=== PATIENT | female | born 1965 | race Caucasian/White ===

== ENCOUNTER 2018-01-19 08:32 | Emergency (ER) | payer BC ==
[2018-01-19] MEDS ORDERED: Ondansetron INJ* 2 MG/ML VIAL IV ONE (08:55)
[2018-01-19] MEDS ORDERED: NS 0.9% 1000 ML* 1,000 ML IV SCH (09:00)
--- NOTE | 2018-01-19 09:01 | UC ---
Dizzy HPI HPI Summary: PATIENT HAS BEEN HAVING INTERMITTENT DIZZINESS AND PALPITATIONS FOR SEVERAL WEEKS. THIS MORNING SYMPTOMS WORSENED AND PATIENT THOUGHT SHE WOULD PASS OUT. HAS ASSOCIATED NAUSEA AND HEADACHE. PATIENT IS A SMOKER WITH A HISTORY OF HIGH CHOLESTEROL. POSITIVE FAMILY HISTORY OF HEART DISEASE. - History Of Current Complaint Chief Complaint: UCDizziness Stated Complaint: DIZZINESS Time Seen by Provider: 01/19/18 08:33 Hx Obtained From: Patient Onset/Duration: Gradual Onset, Lasting Weeks, Worse Since - TODAY Severity Initially: Moderate Severity Currently: Moderate Pain Intensity: 0 Pain Scale Used: 0-10 Numeric Character: Weak, Dizzy Aggravating Factor(s): Position Change Alleviating Factor(s): Nothing Associated Signs And Symptoms: Positive: Nausea, SOB, Palpitations. Negative: Diaphoresis, Chest Pain - Allergies/Home Medications Allergies/Adverse Reactions: Allergies Allergy/AdvReac Type Severity Reaction Status Date / Time No Known Allergies Allergy Verified 02/18/15 09:25 PMH/Surg Hx/FS Hx/Imm Hx Endocrine History: Dyslipidemia - Surgical History Surgical History: Yes Surgery Procedure, Year, and Place: HYSTERECTOMY,ESSURE, BLADDER SLING, - Family History Known Family History: Positive: Cardiac Disease, Hypertension - Social History Alcohol Use: None Substance Use Type: None Smoking Status (MU): Heavy Every Day Tobacco Smoker Household Exposure Type: Cigarettes Review of Systems Constitutional: Negative Skin: Negative Respiratory: Shortness Of Breath Cardiovascular: Palpitations Gastrointestinal: Nausea Neurological: Headache All Other Systems Reviewed And Are Negative: Yes Physical Exam Triage Information Reviewed: Yes Appearance: Well-Nourished, Ill-Appearing - UNCOMFORTABLE - LAYING WITH EYES CLOSED Vital Signs: Initial Vital Signs Temp 97.3 F 01/19/18 08:42 Pulse 78 01/19/18 08:42 Resp 18 01/19/18 08:42 BP 152/77 01/19/18 08:42 Pulse Ox 100 01/19/18 08:42 Eyes: Positive: Conjunctiva Clear ENT: Positive: Hearing grossly normal Neck: Positive: Supple Respiratory Exam: Normal Cardiovascular Exam: Normal Abdomen Description: Positive: Soft Musculoskeletal: Positive: No Edema Neurological: Positive: Alert Psychological: Positive: Age Appropriate Behavior Skin: Negative: rashes Diagnostics - EKG Cardiac Rate: NL - 78 BPM Cardiac Rhythm: Sinus: Normal Ectopy: None ST Segment: Non-Specific - <1MM ST DEPRESSION LATERAL LEADS Dizzy Course/Dx - Course Course Of Treatment: TO [facility] BY AMBULANCE - Differential Dx/Diagnosis Provider Diagnoses: DIZZY, PALPITATIONS - Physician Notifications Discussed Patient Care With: SHAHEED ARNOLD RN Time Discussed With Above Provider: 08:55 Instructed by Provider To: MD Will See In ED Discharge - Sign-Out/Discharge Documenting (check all that apply): Patient Departure All imaging exams completed and their final reports reviewed: No Studies - Discharge Plan Condition: Stable Disposition: TRANS HIGHER LVL OF CARE FAC - Billing Disposition and Condition Condition: STABLE Disposition: Trans Higher Lvl of Care Fac
[2018-01-19 09:17] VITALS: BP 152/77
== END 2018-01-19 09:22 | disposition short-term general hospital (02) ==
LOC: UCEAST 08:32
DX: R42 Dizziness and giddiness (principal); R00.2 Palpitations; R06.02 Shortness of breath; R11.0 Nausea; F17.210 Nicotine dependence, cigarettes, uncomplicated
CPT/HCPCS: 93005; 96360; 96374; 96376; 99213; G0463; J2405

== ENCOUNTER 2018-01-19 09:47 | Emergency (ER) | payer BC ==
[2018-01-19] MEDS ORDERED: Aspirin 81 mg CHEW TAB* 81 MG TAB.CHEW PO ONE (09:57)
[2018-01-19 10:35] LABS: Urine Appearance Clear; Urine Blood Negative (Negative); Urine Color Colorless; Urine Ketones Negative (Negative); Urine Protein Negative (Negative); Urine Specific Gravity 1.001 (1.010-1.030); Urine Urobilinogen Negative (Negative)
--- NOTE | 2018-01-19 10:39 | ED ---
Palpitations / Dysrhythmia - HPI Summary HPI Summary: This patient is a 53 year old F BIBA from [facility] to ED with a chief complaint of palpitations and SOB since earlier today. Patient was driving from home to [facility] to get [employer] with her daughter during onset. The CC is described as constant and pounding, and she is currently feeling this way in the room. The patient rates the pain 5/10 in severity. Symptoms aggravated by anxiety. Symptoms alleviated by nothing. Patient reports nausea, dizziness, feeling flushed, near syncope while driving to , and frontal PAT (4/10 in severity). Patient denies CP, blurred vision, and any vision changes. PSHx of tubal ligation and D&C. Denies hx of panic attacks. Stress test done by Dr. Diaz , [employer] biometric fingerprinting technician. FHx CAD in both mother and fathers side. Patient is a smoker and does not drink alcohol. Current vitals include 70 BPM, 98 O2 sat, and BP 144/88. Home Medications Medication Instructions Recorded Confirmed Type Atorvastatin* [Lipitor 40 MG*] 40 mg PO DAILY 02/18/15 01/19/18 History Cetirizine* [ZyrTEC 10 MG TAB*] 10 mg PO DAILY 02/18/15 01/19/18 History Conjugated Estrogens TAB* 0.3 mg PO DAILY 02/18/15 01/19/18 History [Premarin TAB*] [place]-3/Dha/Epa/Fish Oil [Fish Oil 1 cap PO DAILY 02/18/15 01/19/18 History 500 mg Softgel] - History of Current Complaint Chief Complaint: EDDysrhythmPalp Time Seen by Provider: 01/19/18 09:56 Hx Obtained From: Patient, EMS, Medical Records - [facility] Onset/Duration: Sudden Onset, Lasting Hours - earlier today, Still Present Timing: Constant Severity Initially: Moderate - 5/10 Severity Currently: Moderate - 5/10 Character: Pounding Aggravating: Nothing Alleviating: Nothing Associated Signs & Symptoms: Nausea - Patient reports nausea, dizziness, feeling flushed, near syncope while driving to , and frontal PAT (4/10 in severity). Patient denies CP, blurred vision, and any vision changes. - Risk Factors Cardiac: Smoking, Family History - Allergy/Home Medications Allergies/Adverse Reactions: Allergies Allergy/AdvReac Type Severity Reaction Status Date / Time No Known Allergies Allergy Verified 01/19/18 10:03 PMH/Surg Hx/FS Hx/Imm Hx Endocrine/Hematology History: Denies: Hx Diabetes Cardiovascular History: Reports: Hx Hypercholesterolemia Denies: Hx Hypertension, Hx Pacemaker/ICD Respiratory History: Denies: Hx Asthma Sensory History: Denies: Hx Hearing Aid Psychiatric History: Reports: Hx Panic Disorder - Surgical History Surgery Procedure, Year, and Place: HYSTERECTOMY,ESSURE, BLADDER SLING, - Immunization History Immunizations Up to Date: Yes Infectious Disease History: No Infectious Disease History: Denies: Traveled Outside the [place] in Last 30 Days - Family History Known Family History: Positive: Cardiac Disease, Hypertension - Social History Lives: With Family Alcohol Use: None Substance Use Type: Reports: None Hx Tobacco Use: Yes Smoking Status (MU): Heavy Every Day Tobacco Smoker Type: Cigarettes Review of Systems Positive: Other - "feeling flushed" Positive: Other - denies any vision changes. Negative: Blurred Vision Negative: Chest Pain Respiratory: Negative Gastrointestinal: Negative Neurological: Other - dizziness, near syncope Positive: Headache - frontal Psychological: Normal All Other Systems Reviewed And Are Negative: Yes Physical Exam - Summary Physical Exam Summary: Appearance: Well-appearing, moderate pain distress, well-nourished Skin: Warm, color reflects adequate perfusion, dry Head: Normal Head/Face inspection, atraumatic Eyes: Conjunctiva clear ENT: TM umbo is erythematous bilat, good light reflex. Thyroid is not palpable. Neck: Supple, no nodes, no JVD. Respiratory: Lungs clear, normal breath sounds, no respiratory distress Cardio: RRR, 70's, no ectopy noted on monitor, No murmur, pulses normal, brisk capillary refill Abdomen: Soft, nontender Bowel sounds: Present Musculoskeletal: Strength Intact/ROM intact, no calf tenderness, no edema. Psychological: Normal Neuro: Alert, ) x 3, CNII-XII intact, motor 5/5, Sensation intact, CBL nl FTN, muscle tone normal, no focal deficit Triage Information Reviewed: Yes Vital Signs On Initial Exam: Initial Vitals Temp Pulse Resp BP Pulse Ox 97.8 F 63 18 139/89 99 01/19/18 09:57 01/19/18 09:57 01/19/18 09:57 01/19/18 09:57 01/19/18 09:57 Vital Signs Reviewed: Yes Diagnostics - Vital Signs Vital Signs Temp Pulse Resp BP Pulse Ox 01/19/18 10:00 70 12 139/89 99 01/19/18 09:57 97.8 F 67 18 139/89 99 - Laboratory Result Diagrams: 01/19/18 10:48 01/19/18 10:48 Lab Statement: Any lab studies that have been ordered have been reviewed, and results considered in the medical decision making process. - Radiology CXR Radiology Interpretation Completed By: Radiologist - NO ACTIVE CARDIOPULMONARY DISEASE IS NOTED. ED physician has reviewed this radiology report. - EKG 0948 Cardiac Rate: Bradycardia - 59 BPM EKG Rhythm: Sinus Bradycardia ST Segment: Non-Specific Ectopy: None EKG Interpretation: An EKG at 0948 reveals nml AV/IV CT, nml QTc, and nml axis. EKG Comparison: No Significant Change - from earlier today at 0830 Re-Evaluation - Re-Evaluation First Eval Re-Evaluation Time: 12:12 Change: Improved Comment: Patient feels better than palpitations she felt earlier today while driving, but reports her heart is "still feeling like it's pounding", especially when she gets stressed. She also reports her PAT is gone. Discussed results with the patient. Current vitals are 69 BPM, 99 O2, and BP is 106/72. Second Eval Re-Evaluation Time: 14:07 Change: Improved Comment: Patient's PAT and dizziness have resolved. Patient is not feeling any CP. Discussed results with the patient and plan for discharge. Patient understands and agrees with this plan. Course/Dx - Course Assessment/Plan: This patient is a 53 year old F BIBA from [facility] to ED with a chief complaint of palpitations and SOB since earlier today. CXR reveals NO ACTIVE CARDIOPULMONARY DISEASE IS NOTED. EKG done at 0948 reveals sinus bradycardia at 59 BPM, nml AV/IV CT, nml QTc, and nml axis. No significant change from earlier today at 0830. Pt had troponins x 2 that were neg, neg d dimer, nl thyroids. Pt had no ectopy or arrythmia noted while monitored in the ED, and no cardiac findings on the monitor to correlate with her symptoms. Pt's headache resolved with tylenol only, and pt had no syncope or head trauma or focal neurologic signs, so no head CT was done. The patient will be discharged with dx of tobacco abuse disorder, cephalgia, and palpitations. Patient understands and agrees with this plan. - Diagnoses Differential Diagnosis/HQI/PQRI: Positive: Cardiomyopathy, Congestive Heart Failure, Coronary Artery Disease, Hyperventilation, Medication Induced, Mitral Valve Prolapse, Panic Disorder, Pulmonary Embolism Provider Diagnoses: Tobacco abuse disorder, Palpitations, Cephalgia Discharge - Sign-Out/Discharge Documenting (check all that apply): Patient Departure - Discharge Plan Condition: Stable Disposition: HOME Patient Education Materials: Heart Palpitations (ED), How to Stop Smoking (ED) Referrals: Ubaldo Gillette MD [Primary Care Provider] - 2 Days Additional Instructions: We have given you a copy of your labs and chest xray that were done today. You have two troponin levels that were zero. We did not identify the cause of your palpitations but we did not find any indication of any life threatening diagnosis. We also did not document any fast or abnormal heart rates. Dr. Pimentel recommends that you stop smoking. You will also want to follow up with Dr. Gillette for further evaluation. Return to the ER if you have any new or worsening symptoms. - Billing Disposition and Condition Condition: STABLE Disposition: Home - Attestation Statements Document Initiated by Scribe: Yes Documenting Scribe: Branden Tamayo Provider For Whom Broderick is Documenting (Include Credential): Calile Pimentel MD Scribe Attestation: Branden Desai, scribed for Callie Pimentel MD on 01/24/18 at 2147. Scribe Documentation Reviewed: Yes Provider Attestation: The documentation as recorded by the Branden nguyen accurately reflects the service I personally performed and the decisions made by me, Callie Pimentel MD
--- NOTE | 2018-01-19 11:01 | RAD ---
Indication: Palpitations. Single frontal view of the chest performed at 1015 hours was reviewed. Comparison is made with previous exam dated November 09, 2005. No mediastinal shift is noted. Heart is of normal size and configuration. Lung cuevas appear clear. IMPRESSION: NO ACTIVE CARDIOPULMONARY DISEASE IS NOTED.
[2018-01-19 11:05] LABS: ABS Basophils 0 10^3/ul (0-0.2); ABS Eosinophils 0.1 10^3/ul (0-0.6); ABS Lymphocytes 1.8 10^3/ul (1.0-4.8); ABS Monocytes 0.4 10^3/ul (0-0.8); ABS Neutrophils 6.1 10^3/ul (1.5-7.7); ABS Nucleated RBC 0 10^3/ul; Eosinophil % 0.6 % (0-6); Hematocrit 42 % (35-47); Hemoglobin 14.6 g/dl (12.0-16.0); Lymphocyte % 21.2 % (25-47); Mean Corpuscular HGB Conc 34 g/dl (31-36); Mean Corpuscular Hemoglobin 32 pg (27-31); Mean Corpuscular Volume 92 fL (80-97); Mean Platelet Volume 7.6 um3 (7.4-10.4); Nucleated Red Blood Cells % 0.1; Platelet Count 293 10^3/ul (150-450); Red Blood Count 4.61 10^6/ul (4.00-5.40); Red Cell Distribution Width 13 % (10.5-15); White Blood Count 8.4 10^3/ul (3.5-10.8)
[2018-01-19 11:15] LABS: INR 0.95 (0.77-1.02)
[2018-01-19 11:24] LABS: EGFR Non-African American 105.8 (>60)
[2018-01-19] MEDS ORDERED: Acetaminophen TAB* 325 MG PO ONE (11:28)
[2018-01-19 14:17] VITALS: BP 109/61
== END 2018-01-19 14:16 | disposition home or self-care (01) ==
LOC: ED 09:47
DX: R00.2 Palpitations (principal); F17.210 Nicotine dependence, cigarettes, uncomplicated; G04.90 Encephalitis and encephalomyelitis, unspecified
CPT/HCPCS: 36415; 71045; 80053; 81003; 82550; 82553; 83605; 83735; 83880; 84436; 84443; 84484; 85025; 85379; 85610; 85730; 93005; 99284; A9270-GY

== ENCOUNTER 2018-06-10 18:42 | Emergency (ER) | payer BC ==
[2018-06-10 18:50] VITALS: BP 150/79
--- NOTE | 2018-06-10 19:10 | UC ---
Upper Extremity HPI - HPI Summary HPI Summary: 53 yo female presents with left rib pain. She tells me that yesterday she was lifting a pack of bottle water and felt/heard a pop in her left ribs. Has been having pain here since. 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 Pain worse with movement and coughing. Denies cough, SOB , chest pain. - History of Current Complaint Chief Complaint: UCGeneralIllness Stated Complaint: RIB PAIN Time Seen by Provider: 06/10/18 19:00 Hx Obtained From: Patient Severity Initially: Moderate Severity Currently: Moderate Pain Intensity: 6 Pain Scale Used: 0-10 Numeric - Allergies/Home Medications Allergies/Adverse Reactions: Allergies Allergy/AdvReac Type Severity Reaction Status Date / Time No Known Allergies Allergy Verified 06/10/18 18:49 Home Medications: Home Medications Acetaminophen TAB* [Tylenol TAB*] 650 mg PO ONCE PRN 06/10/18 [History Confirmed 06/10/18] PMH/Surg Hx/FS Hx/Imm Hx Endocrine History: Dyslipidemia - Surgical History Surgical History: Yes Surgery Procedure, Year, and Place: HYSTERECTOMY,ESSURE, BLADDER SLING, - Family History Known Family History: Positive: Cardiac Disease, Hypertension - Social History Occupation: Employed Full-time Lives: With Family Alcohol Use: None Substance Use Type: None Smoking Status (MU): Current Every Day Smoker Type: Cigarettes Amount Used/How Often: 1 PPD Household Exposure Type: Cigarettes Review of Systems All Other Systems Reviewed And Are Negative: Yes Constitutional: Positive: Negative Skin: Positive: Negative Respiratory: Positive: Negative Cardiovascular: Positive: Negative Neurovascular: Positive: Negative Musculoskeletal: Positive: Other: - Left rib pain Neurological: Positive: Negative Psychological: Positive: Negative Physical Exam - Summary Physical Exam Summary: GENERAL: NAD. WDWN. No pain distress. SKIN: No rashes, sores, lesions, or open wounds. CHEST: CTAB. No r/r/w. No accessory muscle use. Breathing comfortably and in no distress. CV: RRR. Without m/r/g. Pulses intact. Cap refill <2seconds MSK: TTP over left ~8th anterior/midaxillary rib. Pain with twisting of torso and with left UE flexion above head. NEURO: Alert. PSYCH: Age appropriate behavior. Triage Information Reviewed: Yes Vital Signs: Initial Vital Signs Temp 97.9 F 06/10/18 18:47 Pulse 80 06/10/18 18:47 Resp 16 06/10/18 18:47 BP 150/79 06/10/18 18:47 Pulse Ox 100 06/10/18 18:47 Vital Signs Reviewed: Yes Upper Extremity Course/Dx - Course Course Of Treatment: XR: No radiologist reading after 1800, therefore wet read by myself is negative for fracture or PTX. Pt was given toradol in the clinic and reports feeling improved. Rx for lidoderm patch and continue tylenol and applying ice to area to decrease pain. Suspect intercostal muscle strain. - Differential Dx/Diagnosis Provider Diagnosis: Intercostal muscle strain Discharge - Sign-Out/Discharge Documenting (check all that apply): Patient Departure All imaging exams completed and their final reports reviewed: No - Discharge Plan Condition: Stable Disposition: HOME Prescriptions: Lidocaine PATCH 5%* [Lidoderm 5% Patch*] 1 patch TRANSDERM DAILY PRN #1 box PRN Reason: Pain Patient Education Materials: Rib Fracture (ED) Referrals: Ubaldo Gillette MD [Primary Care Provider] - Additional Instructions: If you develop a fever, shortness of breath, chest pain, new or worsening symptoms - please call your PCP or go to the ED. Your blood pressure was high at todays visit. Please see your primary provider within 4 weeks for recheck and re-evaluation. 1) Rest and apply ice to the area of pain 2) May continue taking tylenol - Billing Disposition and Condition Condition: STABLE Disposition: Home
[2018-06-10] MEDS ORDERED: Ketorolac INJ* 60 MG/2 ML VIAL IM ONE (19:11)
--- NOTE | 2018-06-11 07:35 | UC ---
- Progress Note Progress Note: Patient Name: ERNESTINA AYALA Medical Record#: [id number] Ordering Physician: Syed SÁNCHEZ Acct.#: [id number] : 1965 Age: 53 Sex: F Location: [facility] Exam Date: 06/10/181909 ADM Status: DEP ER Order Information: RIBS LT UNI W/PA CH MIN 3 VWS Accession Number: [id number] CPT: 21743 INDICATION: Left rib injury. COMPARISON: Comparison is made with a prior chest x-ray study from January. TECHNIQUE: 3 views of the left ribs and dual-energy PA views of the chest were obtained. FINDINGS: No fracture or significant focal osseous abnormality is seen. The heart is within normal limits in size. The lungs are clear. There is no evidence for pneumothorax or pleural effusion. IMPRESSION: NO EVIDENCE FOR FRACTURE. R0 Preliminary Imaging Read R0 <Electronically signed by Kishor Beyer MD in OV> 06/11/18710 Dictated By: Kishor Beyer MD Dictated Date/Time: 06/11/18710 Transcribed Date/Time: 06/11/18701 Copy to: CC:Ubaldo Gillette MD; Syed SÁNCHEZ; Esteban Roque MD Imaging - [facility] - [facility] [address] [address] ph ([phone]) ph ([phone]) ph ([phone]) This report is only to be considered final once signed by the Provider(s) as displayed in the "<Electronically Signed by >" field (s). Absence of a signature indicates the report is in a draft status and still needs to be finalized. In the event this document was created by someone other than the signing Provider, the individual initiating the document will be listed in the "Entered by:" or "Dictated by:" cuevas. 1 of 1 Course/Dx - Diagnoses Provider Diagnoses: Intercostal muscle strain Discharge - Sign-Out/Discharge Documenting (check all that apply): Post-Discharge Follow Up All imaging exams completed and their final reports reviewed: Yes - Discharge Plan Condition: Stable Disposition: HOME Prescriptions: Lidocaine PATCH 5%* [Lidoderm 5% Patch*] 1 patch TRANSDERM DAILY PRN #1 box PRN Reason: Pain Patient Education Materials: Rib Fracture (ED) Referrals: Ubaldo Gillette MD [Primary Care Provider] - Additional Instructions: If you develop a fever, shortness of breath, chest pain, new or worsening symptoms - please call your PCP or go to the ED. Your blood pressure was high at todays visit. Please see your primary provider within 4 weeks for recheck and re-evaluation. 1) Rest and apply ice to the area of pain 2) May continue taking tylenol - Billing Disposition and Condition Condition: STABLE Disposition: Home
== END 2018-06-10 19:57 | disposition home or self-care (01) ==
LOC: UCEAST 18:42
DX: S29.011A Strain of muscle and tendon of front wall of thorax, initial encounter (principal); X50.0XXA Overexertion from strenuous movement or load, initial encounter; Y93.F2 Activity, caregiving, lifting; Y92.9 Unspecified place or not applicable; F17.210 Nicotine dependence, cigarettes, uncomplicated
CPT/HCPCS: 96372; 99212; G0463; J1885